=== PATIENT | male | born 1975 | race Caucasian/White ===

== ENCOUNTER 2018-02-12 17:10 | Observation (INO) ==
--- NOTE | 2018-02-12 18:34 | Emergency Department Note ---
Addendum entered and electronically signed by Graeme Saba 02/12/18 19:19: The clinical impression is incorrect. Labs returned with CK being >2400. Will admit as rhabdomyolysis and give IVF and obtain UA now. Original Note: Disposition Clinical Impression: Post viral syndrome Disposition: Home, Self-Care Condition: Good Instructions: Viral Syndrome (ED) Reasons to Return/Additional Instructions: Followup with your primary care provider next week if symptoms do not improve. Can return to the ED if symptoms worsen or new symptoms develop. Referrals: Beatrice Ni BLACK LEATHER TRIMMER [Primary Care Provider] - General Adult HPI - General Chief complaint: ED Weakness Stated complaint: Muscle weakness,flu like symptoms Time Seen by Provider: 02/12/18 17:32 Source: patient Mode of arrival: ambulatory Limitations: no limitations Nursing Notes Reviewed: Yes Vital Signs Reviewed: Yes - History of Present Illness HPI Narrative: 42 year old man with hx of HTN and hypogonadism who takes IM testosterone presents to ED with muscle weakness/soreness. He had congestion, pharyngitis, myalgias 5 days ago which progressed with subjective fever and chills 3 days ago. 2 days ago he noticed bilateral hip/thigh muscles felt very sore/tight he describes as similar to lactic acid buildup when lifting weights that progressed distally and then into bilateral traps and UE. Today he noticed UE paresthesia and decreased fine motor skills with hands. Was having trouble closing a plastic baggy and trouble writing today due to weakness and dexterity of fingers. He denied tremors, numbness/paresthesia elsewhere, unilateral symptoms, confusion, trouble speaking, blurry vision/diplopia, dizziness/lightheadedness, otc vitamin use/workout supplements. Has not lifted weights for 10 days. Pt Subjective Complaint: muscle weakness Onset (ago): day(s) Location: left, right, upper extremity, lower extremity Radiation: non-radiation Pain Scale: 2 Consistency: Worsening Improves with: nothing Worsens with: nothing Associated symptoms: Reports: denies other symptoms Treatments Prior to Arrival: none - Related Data Allergies Allergy/AdvReac Type Severity Reaction Status Date / Time shrimp Allergy Swelling Verified 02/12/18 19:01 of Lip/Tongue/Throat Sulfa (Sulfonamide AdvReac See Verified 02/12/18 19:01 Antibiotics) Comments All systems ED: reviewed and negative except as stated. Constitutional: Reports: weakness. Denies: fever, chills Eyes: Denies: vision change ENT ED: Denies: throat pain, congestion Cardiovascular: Denies: chest pain Respiratory: Denies: cough, dyspnea Gastrointestinal: Denies: abdominal pain, nausea, vomiting Musculoskeletal: Reports: back pain, neck pain Neurological: Reports: weakness, numbness, paresthesias Past Medical History - Past Medical History Medical history: Reports: hypertension Psychiatric history: Reports: no psych history - Social History Smoking Status: Never smoker Smokeless Tobacco Status: No Alcohol use: Reports: none Drug use: Reports: none Physical Exam - General Limitations: no limitations General appearance: alert, in no apparent distress - Head Head exam: atraumatic, normocephalic, normal inspection - Eye Eye exam: Present: normal appearance, PERRL, EOMI - ENT ENT exam: mucous membranes moist - Neck Neck exam: Present: normal inspection, full ROM, trachea midline - Chest Chest inspection: Present: normal inspection, symmetric chest wall rise - Respiratory Respiratory exam: Present: normal lung sounds bilaterally - Cardiovascular Cardiovascular exam: Present: regular rate, normal rhythm, normal heart sounds, +S1, +S2 - Extremities Exam Extremities exam: Present: normal inspection, normal capillary refill. Absent: full ROM, tenderness, pedal edema, calf tenderness - Neurological Exam Neurological exam: Present: alert - Expanded Neurological Exam Speech: Present: fluid speech Cranial nerves: EOM function (II, III, IV, ): Normal, facial sensation (V): Normal, facial palsy (VII): Normal, spinal accessory function (XI): Normal, tongue deviation (XII): Normal Cerebellar function: finger to nose: Normal Motor strength - LUE: 5/5 Motor strength - RUE: 5/5 Motor strength - LLE: 5/5 Motor strength - RLE: 5/5 Sensory exam upper extremity: light touch: Normal, temperature: Normal Sensory exam lower extremity: light touch: Normal, temperature: Normal DTR: brachioradialis (L): 2+, brachioradialis (R): 2+, patellar (L): 2+, patellar (R): 2+ - Psychiatric Psychiatric exam: Present: normal affect - Skin Skin exam: Present: warm, dry, intact, normal color. Absent: rash, cyanosis, diaphoresis, erythema Course Course Narrative: muscle weakness/tightness post flu like symptoms. Likely viral syndrome but will check electrolytes and ck now. Vital Signs Temperature 98.6 F 02/12/18 17:19 Pulse Rate 88 02/12/18 17:19 Respiratory Rate 16 02/12/18 17:19 Blood Pressure 151/86 02/12/18 17:19 O2 Sat by Pulse Oximetry 96 02/12/18 17:19 Temperature 98.6 F 02/12/18 17:19 Pulse Rate 77 02/12/18 18:59 Respiratory Rate 16 02/12/18 17:19 Blood Pressure 140/81 02/12/18 18:59 O2 Sat by Pulse Oximetry 98 02/12/18 18:59 Oxygen Delivery Oxygen Delivery Room Air Medical Decision Making - Lab Data Result diagrams: 02/12/18 18:25 Lab Results 02/12/18 Range/Units 18:25 WBC 6.5 (4.3-11.1) K/mcL RBC 5.33 (4.19-5.50) M/mcL Hgb 16.9 (12.9-16.9) g/dL Hct 47.9 (37.5-50.1) % MCV 89.9 (83.0-100.0) fL MCH 31.7 (28.0-33.3) pg MCHC 35.3 (31.6-35.5) g/dL RDW 13.5 (11.5-14.5) % Plt Count 144 (140-400) K/mcL MPV 10.3 (9.4-12.4) fL
[2018-02-12 18:39] LABS: Hematocrit 47.9 % (37.5-50.1); Hemoglobin 16.9 g/dL (12.9-16.9); Mean Corpuscular HGB Conc 35.3 g/dL (31.6-35.5); Mean Corpuscular Hemoglobin 31.7 pg (28.0-33.3); Mean Corpuscular Volume 89.9 fL (83.0-100.0); Mean Platelet Volume 10.3 fL (9.4-12.4); Platelet Count 144 K/mcL (140-400); Red Blood Count 5.33 M/mcL (4.19-5.50); Red Cell Distribution Width 13.5 % (11.5-14.5)
--- NOTE | 2018-02-12 18:51 | Emergency Department Note ---
Disposition Clinical Impression: Post viral syndrome Disposition: Home, Self-Care Condition: Good Instructions: Viral Syndrome (ED) Reasons to Return/Additional Instructions: Followup with your primary care provider next week if symptoms do not improve. Can return to the ED if symptoms worsen or new symptoms develop. Referrals: Beatrice Ni CNP [Primary Care Provider] - General Adult HPI - General Chief complaint: ED Weakness Stated complaint: Muscle weakness,flu like symptoms Time Seen by Provider: 02/12/18 17:32 Source: patient Mode of arrival: ambulatory Limitations: no limitations - History of Present Illness Location: left, right, upper extremity, lower extremity Pain Scale: 2 Improves with: nothing Worsens with: nothing Associated symptoms: Reports: denies other symptoms Treatments Prior to Arrival: none - Related Data Allergies Allergy/AdvReac Type Severity Reaction Status Date / Time shrimp Allergy Swelling Verified 02/12/18 19:01 of Lip/Tongue/Throat Sulfa (Sulfonamide AdvReac See Verified 02/12/18 19:01 Antibiotics) Comments Constitutional: Reports: weakness. Denies: fever, chills Eyes: Denies: vision change ENT ED: Denies: throat pain, congestion Cardiovascular: Denies: chest pain Respiratory: Denies: cough, dyspnea Gastrointestinal: Denies: abdominal pain, nausea, vomiting Musculoskeletal: Reports: back pain, neck pain Neurological: Reports: weakness, numbness, paresthesias Past Medical History - Past Medical History Medical history: Reports: hypertension Psychiatric history: Reports: no psych history - Social History Smoking Status: Never smoker Smokeless Tobacco Status: No Alcohol use: Reports: none Drug use: Reports: none Physical Exam - General Limitations: no limitations General appearance: alert, in no apparent distress Course Vital Signs Temperature 98.6 F 02/12/18 17:19 Pulse Rate 88 02/12/18 17:19 Respiratory Rate 16 02/12/18 17:19 Blood Pressure 151/86 02/12/18 17:19 O2 Sat by Pulse Oximetry 96 02/12/18 17:19 Temperature 98.6 F 02/12/18 17:19 Pulse Rate 77 02/12/18 18:59 Respiratory Rate 16 02/12/18 17:19 Blood Pressure 140/81 02/12/18 18:59 O2 Sat by Pulse Oximetry 98 02/12/18 18:59 Oxygen Delivery Oxygen Delivery Room Air Medical Decision Making - Lab Data Result diagrams: 02/12/18 18:25 Lab Results 02/12/18 Range/Units 18:25 WBC 6.5 (4.3-11.1) K/mcL RBC 5.33 (4.19-5.50) M/mcL Hgb 16.9 (12.9-16.9) g/dL Hct 47.9 (37.5-50.1) % MCV 89.9 (83.0-100.0) fL MCH 31.7 (28.0-33.3) pg MCHC 35.3 (31.6-35.5) g/dL RDW 13.5 (11.5-14.5) % Plt Count 144 (140-400) K/mcL MPV 10.3 (9.4-12.4) fL Attestation Statement - Attestation Attestation: I examined this patient and my medical decision-making was reviewed with the PRICK STITCHER/PA/Advanced Practice Nurse/Resident Physician. I agree with the documented findings, disposition and treatment plan as described except to the extent set forth below. I did see the patient spoke with them examine home and he has had some rhinorrhea and coughing for the last 4 days which is improving, generalized myalgias and feeling of muscle weakness, exposed to his girlfriend who has upper respiratory symptoms. The patient did have what he called a fever on Thursday, 2 days ago but did not check his temperature but felt very warm. He denies any pain in the head, neck, chest, abdomen or back. No vomiting or diarrhea. No blood in the urine or stool. Social history: No smoking, alcohol, drugs. The patient likely has a viral syndrome and we did write for labs based on the significant number symptoms that the patient is having however if these do come back negative patient was sent home for symptom medical therapy with [id number] medications, oral fluids and to follow-up with primary care on Thursday
[2018-02-12 19:13] LABS: Alanine Aminotransferase 50 Units/L (7-52); Albumin 3.9 g/dL (3.5-5.7); Albumin/Globulin Ratio 1.2 (1.1-2.2); Alkaline Phosphatase 30 Units/L (34-104); Aspartate Amino Transferase 85 Units/L (13-39); BUN/Creatinine Ratio 13 (6-26); Bilirubin,Direct 0.2 mg/dL (0.0-0.2); Bilirubin,Indirect 0.3 mg/dL (0.0-1.2); Bilirubin,Total 0.5 mg/dL (0.3-1.0); Blood Urea Nitrogen 13 mg/dL (6-20); Calcium 8.3 mg/dL (8.6-10.3); Carbon Dioxide 26 mEq/L (23-29); Chloride 101 mEq/L (98-107); Creatine Kinase 2415 Units/L (30-223); Globulin 3.3 g/dL (2.4-3.5); Glucose 77 mg/dL (70-105); Osmolality,Calculated 281 (280-300); Potassium 3.6 mEq/L (3.5-5.1); Sodium 136 mEq/L (136-145); Total Protein 7.2 g/dL (6.4-8.9); eGFR For Non-African Americans > 60 (> 60)
[2018-02-12] MEDS ORDERED: 0.9 % Sodium Chloride 1,000 ML IVC ONE ×2 (19:18→19:29)
--- NOTE | 2018-02-12 19:27 | Emergency Department Note ---
Disposition Clinical Impression: Post viral syndrome, Myopathy Rhabdomyolysis Qualifiers: Rhabdomyolysis type: non-traumatic Qualified Code(s): M62.82 - Rhabdomyolysis Disposition: Admitted As Inpatient Condition: Good General Adult HPI - General Chief complaint: ED Weakness Stated complaint: Muscle weakness,flu like symptoms Time Seen by Provider: 02/12/18 17:32 Source: patient Mode of arrival: ambulatory Limitations: no limitations Nursing Notes Reviewed: Yes Vital Signs Reviewed: Yes - History of Present Illness Location: left, right, upper extremity, lower extremity Pain Scale: 2 Improves with: nothing Worsens with: nothing Associated symptoms: Reports: denies other symptoms Treatments Prior to Arrival: none - Related Data Allergies Allergy/AdvReac Type Severity Reaction Status Date / Time shrimp Allergy Swelling Verified 02/12/18 19:01 of Lip/Tongue/Throat Sulfa (Sulfonamide AdvReac See Verified 02/12/18 19:01 Antibiotics) Comments Constitutional: Reports: weakness. Denies: fever, chills Eyes: Denies: vision change ENT ED: Denies: throat pain, congestion Cardiovascular: Denies: chest pain Respiratory: Denies: cough, dyspnea Gastrointestinal: Denies: abdominal pain, nausea, vomiting Musculoskeletal: Reports: back pain, neck pain Neurological: Reports: weakness, numbness, paresthesias Past Medical History - Past Medical History Medical history: Reports: hypertension Psychiatric history: Reports: no psych history - Social History Smoking Status: Never smoker Smokeless Tobacco Status: No Alcohol use: Reports: none Drug use: Reports: none Physical Exam - General Limitations: no limitations General appearance: alert, in no apparent distress Course Vital Signs Temperature 98.6 F 02/12/18 17:19 Pulse Rate 88 02/12/18 17:19 Respiratory Rate 16 02/12/18 17:19 Blood Pressure 151/86 02/12/18 17:19 O2 Sat by Pulse Oximetry 96 02/12/18 17:19 Temperature 98.6 F 02/12/18 17:19 Pulse Rate 77 02/12/18 18:59 Respiratory Rate 16 02/12/18 17:19 Blood Pressure 140/81 02/12/18 18:59 O2 Sat by Pulse Oximetry 98 02/12/18 18:59 Oxygen Delivery Oxygen Delivery Room Air Medical Decision Making - Lab Data Result diagrams: 02/12/18 18:25 02/12/18 18:25 Lab Results 02/12/18 02/12/18 Range/Units 18:25 18:25 WBC 6.5 (4.3-11.1) K/mcL RBC 5.33 (4.19-5.50) M/mcL Hgb 16.9 (12.9-16.9) g/dL Hct 47.9 (37.5-50.1) % MCV 89.9 (83.0-100.0) fL MCH 31.7 (28.0-33.3) pg MCHC 35.3 (31.6-35.5) g/dL RDW 13.5 (11.5-14.5) % Plt Count 144 (140-400) K/mcL MPV 10.3 (9.4-12.4) fL Sodium 136 (136-145) mEq/L Potassium 3.6 (3.5-5.1) mEq/L Chloride 101 (98-107) mEq/L Carbon Dioxide 26 (23-29) mEq/L BUN 13 (6-20) mg/dL Creatinine 1.04 (0.70-1.30) mg/dL Est GFR ( Amer) > 60 (> 60) Est GFR (Non-Af Amer) > 60 (> 60) BUN/Creatinine Ratio 13 (6-26) Glucose 77 (70-105) mg/dL Calculated Osmolality 281 (280-300) Calcium 8.3 L (8.6-10.3) mg/dL Total Bilirubin 0.5 (0.3-1.0) mg/dL Direct Bilirubin 0.2 (0.0-0.2) mg/dL Indirect Bilirubin 0.3 (0.0-1.2) mg/dL AST 85 H (13-39) Units/L ALT 50 (7-52) Units/L Alkaline Phosphatase 30 L (34-104) Units/L Creatine Kinase 2415 H (30-223) Units/L Serum Total Protein 7.2 (6.4-8.9) g/dL Albumin 3.9 (3.5-5.7) g/dL Globulin 3.3 (2.4-3.5) g/dL Albumin/Globulin Ratio 1.2 (1.1-2.2) Attestation Statement - Attestation Attestation: Patient taken over at sign out from Dr. Suzanne. The patient had initial labs drawn secondary to viral syndrome. Patient with complaints of his upper extremities feeling as if he has been working out. Patient with pain in the biceps as well as across the upper back. 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 The patient's CK came back elevated at 2500. Patient will be given fluids and undergo admission for further evaluation. At time of my evaluation he has not had difficulty with ambulation and does not have any abnormal reflexes of the arms or legs. No respiratory complaints. I did discuss with the hospitalist. Patient will be brought in for fluid management as well as continued observation.
[2018-02-12] MEDS ORDERED: Naloxone 0.4 MG/ML INJ IVP PRN (21:07)
[2018-02-12] MEDS ORDERED: Ketorolac 15 MG/ML VIAL IVP PRN (21:07)
--- NOTE | 2018-02-12 21:29 | Internal Med History&Physical ---
<Irwin Dodson - Last Filed: 02/13/18 00:33> Date of Encounter: 02/12/18 Time of Encounter: 21:00 Internal Medicine - H&P: HPI Chief complaint: Muscle pain Admitted From: Emergency Dept Plans for Post Hospital Care: Home History of present illness: Mr. Stephen is a 42 year old male with history of hypertension, low testosterone, migraine headaches who presents to the ED with complaints of upper respiratory infection like symptoms and myalgias for 5 days duration. He says that he initially started having muscle weakness and soreness approximately 5 days ago, and developed fevers and chills approximately 3 days ago. Feels that this initially began with a sore throat and cough on Thursday, and has been worsening each day until by Thursday he was having significant pain in his muscles which she considered severe and he considered pain down to bone. The pain is all over his body, however it initially started in his traps and then moved elsewhere. He has tried taking Clari[place] cold and sinus, as well as ibuprofen which have both been effective for the pain. His most concerning symptom was last night when he was trying to seal a plastic zip lock bag and he had difficulty doing so. In addition to this, the patient says that today he was trying to use a pen to write and he noticed that his dexterity was decreased and that he had a hard time gripping the pen. He says this never happened before. He has no history of any neurological or muscular disease. 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 He eats healthy, works out 2-3 times a week although has not worked out and about a week and a half or 2 weeks. He does not smoke, does not drink alcohol and uses no drugs. He lives with his girlfriend. Family history is significant only for a mother with hypertension and a father with pulmonary fibrosis. In the emergency department, the patient received labs which were grossly normal apart from elevated AST and a CK of 2415. The patient does not appear to have any evidence of acute kidney injury in the presence of elevated CK. Past Med Surg Social Fam HX - Past Medical History Medical history: hypertension Psychiatric history: no psych history - Past Surgical History Additional surgical history: ruptured disc - Social History Smoking Status: Never smoker Smokeless Tobacco Status: No Alcohol use: none Drug use: none - Family History Mother Living Status: Still Living Age at : 67 Hx Family Cardiac Disorders: Yes (HTN) Hx Family Cancer: (remission of cancer) Father Age: 70 Hx Family Respiratory Disorders: Yes (hardening of lungs) Internal Medicine - H&P: Meds Losartan/Hydrochlorothiazide [Losartan-Hctz 50-12.5 mg Tab] 1 tab PO DAILY 02/12/18 [History] SUMAtriptan Succinate [Imitrex] 100 mg PO DAILY PRN 02/12/18 [History] Testosterone Cypionate 200 mg IM Q10D 02/12/18 [History] Allergy/AdvReac Type Severity Reaction Status Date / Time shrimp Allergy Swelling Verified 02/12/18 19:01 of Lip/Tongue/Throat Sulfa (Sulfonamide AdvReac See Verified 02/12/18 19:01 Antibiotics) Comments All Systems PM: A 10-system review of systems was performed and is negative for pertinent findings except as documented above in the HPI. Review of systems: Constitutional: Admits to subjective fever and chills. Denies weight loss, gen eralized fatigue Head/Neck: Denies HENLEY, neck stiffness EENT: Admits to congestion and sore throat. Denies vision changes/blurriness, rhinorrhea. CVS: Denies chest pain, palpitations, TAYLOR, orthopnea, edema, PND Pulm: Admits to cough. Denies SOB, sputum, hemoptysis, wheezing GI: Denies abdominal pain, nausea, vomiting, diarrhea, constipation, melena, hematemasis : Denies dysuria, increased frequency, urgency, hematuria Heme: Denies ease of bleeding or bruising MSK: Admits to severe muscular pain throughout his body with muscle weakness, worse on the left. Skin: Denies rashes, ulcers, color changes Neuro: Admits to mild headache, denies paresthesias but admits to significant muscle weakness and pain throughout his body. - Constitutional Vitals: Temp Pulse Resp BP Pulse Ox 98.6 F 77 16 140/81 98 02/12/18 17:19 02/12/18 18:59 02/12/18 17:19 02/12/18 18:59 02/12/18 18:59 Exam: Gen: Vitals noted. No acute distress. Eyes: anicteric sclerae, moist conjunctivae; no lid-lag; Pupils equal and reactive to light HENT: Atraumatic; oropharynx clear with moist mucous membranes and no mucosal ulcerations; normal hard and soft palate Neck: Trachea midline; supple, no thyromegaly or lymphadenopathy Cardiac: RRR, no murmur, +S1/S2 Pulmonary: CTA bilaterally, no wheezes, rales or rhonchi, equal chest expansion Abdomen: soft, nontender, no guarding. No masses or hepatosplenomegaly MSK: ROM intact, no joint swelling noted. Soreness is noted throughout muscles even with light palpation. Extremities: no BLE edema, nontender calf, no cyanosis or clubbing Skin: Normal temperature, turgor and texture; no rash, ulcers or subcutaneous nodules Neuro: moves all extremities, cranial nerves II through XII grossly intact. There is no notable muscle weakness on the left side throughout, however most notable in the left lower extremity. Muscle strength 4 out of 5 in the left lower extremity, although patient says this could be secondary to pain.. Pincer strength also decreased. Patient had decreased ability for rapid alternating movement as well. Sensory function is grossly intact. Reflexes normal throughout. Psych: Appropriate mood and behavior. A&Ox3 Internal Med - H&P Results - Labs CBC & Chem 7: 02/12/18 18:25 02/12/18 18:25 Labs: Short CBC 02/12/18 Range/Units 18:25 WBC 6.5 (4.3-11.1) K/mcL Hgb 16.9 (12.9-16.9) g/dL Hct 47.9 (37.5-50.1) % Plt Count 144 (140-400) K/mcL BMP 02/12/18 18:25 Sodium 136 Potassium 3.6 Chloride 101 Carbon Dioxide 26 BUN 13 Creatinine 1.04 Glucose 77 Calcium 8.3 L Liver Function 02/12/18 Range/Units 18:25 Total Bilirubin 0.5 (0.3-1.0) mg/dL Direct Bilirubin 0.2 (0.0-0.2) mg/dL AST 85 H (13-39) Units/L ALT 50 (7-52) Units/L Alkaline Phosphatase 30 L (34-104) Units/L Albumin 3.9 (3.5-5.7) g/dL - Assessment and plan (1) Muscle weakness Current Visit: Yes Status: Acute Assessment and plan: Muscle weakness, left worse than right Weakness is significant specifically on the left, muscle strength 4 out of 5 Patient says this is partially due to muscle pain, however it is notable There does not appear to be any accompanying sensory deficits at this time Although I do not suspect that there is a BIOMEDICAL SERVICE ENGINEER involvement in this, head CT is indicated We will consider neurology follow-up (2) Rhabdomyolysis Current Visit: Yes Status: Acute Assessment and plan: Rhabdomyolysis, CK 2415 Etiology is suspected viral myositis Renal function appears to be stable at this time We will continue to monitor, give IV maintenance fluids Recheck CK and BMP in the morning Qualifiers: Rhabdomyolysis type: non-traumatic Qualified Code(s): M62.82 - Rhabdomyolysis (3) Hypertension Current Visit: Yes Status: Acute Assessment and plan: Htn, Hold Losartan-HCTZ due to potential for nephrotoxicity effects in patient with rhabdomyolysis I will give one-time dose of amlodipine tonight Consider restarting home meds tomorrow Qualifiers: Hypertension type: essential hypertension Qualified Code(s): I10 - Essential (primary) hypertension (4) DVT prophylaxis Current Visit: Yes Status: Acute Assessment and plan: Subcutaneous heparin (5) Viral myositis Current Visit: Yes Status: Suspected Assessment and plan: Suspected viral myositis Patient recently had upper respiratory infection and is now having symptoms of myositis Presents with muscle soreness, weakness, CK elevated 2415 Exact etiology is unknown at this time, however suspect viral etiology Still, I will check ESR, CRP, NABILA, flu, Monospot Recheck creatine kinase in the morning, as well as BMP Consider neurology consult if symptoms worsen due to concern for polymyositis - Time Spent With Patient Total time spent is greater than 50% in coordination of care (as documented) at patient's floor/unit and/or counseling patient: <Clinton Antunez - Last Filed: 02/13/18 04:18> Date of Encounter: 02/13/18 Time of Encounter: 01:50 - Constitutional Constitutional: no chills, no fever(s) - EENT Eyes: no blurry vision, no change in vision, no diplopia Ears: no ear pain, no tinnitus Nose, mouth and throat: no sore throat - Cardiovascular Cardiovascular ROS IM: no chest pain, no dyspnea - Respiratory Respiratory: no cough, no chest congestion, no excessive phlegm production - Gastrointestinal Gastrointestinal: no abdominal pain, no diarrhea, no hematemesis, no hematochezia, no melena, no vomiting - Genitourinary Genitourinary ROS male: no dysuria, no flank pain, no hematuria - Musculoskeletal Musculoskeletal ROS IM: muscle weakness, myalgias, no arthralgias, no back pain - Integumentary Integumentary IM: no rash, no jaundice - Neurological Neurological ROS: weakness (generalized), no dizziness, no focal weakness, no frequent falls, no headache(s) - Psychiatric Psychiatric: no anxiety, no depression - Endocrine Endocrine IM: no cold intolerance, no heat intolerance, no polydipsia, no polyuria - Hematologic/Lymphatic Hematologic/Lymphatic: no easy bruising - Allergic/Immunologic Allergic/Immunologic: no GI upset with certain foods - Constitutional Vitals: Temp Pulse Resp BP Pulse Ox 98.6 F 82 16 145/84 98 02/12/18 23:43 02/12/18 23:43 02/12/18 23:43 02/13/18 01:41 02/12/18 23:43 General appearance: Present: cooperative, A&O X 3, pleasant, no acute distress - Eye Eye exam: Present: EOMI, PERRL. Absent: scleral icterus Pupils: Present: normal accommodation - ENT ENT exam: Present: mucous membranes dry, normal exam, normal oropharynx - Neck Neck exam general surgery: Present: full ROM, supple. Absent: tenderness, nuchal rigidity, thyromegaly - Respiratory Respiratory exam: Present: CTAB. Absent: chest wall tenderness, rales, rhonchi, wheezes - Cardiovascular Cardiovascular exam: Present: RRR, +S1, +S2. Absent: diastolic murmur, systolic murmur - GI/Abdominal GI/Abdominal exam: Present: normal bowel sounds, soft. Absent: guarding, hepatomegaly, mass, splenomegaly, tenderness - Extremities Exam Extremities exam: Present: full ROM, normal capillary refill, tenderness (mild diffuse muscle aches), warm, radial pulses palpable and symmetrical. Absent: calf tenderness, joint swelling, pedal edema - Back Exam Back exam: Absent: CVA tenderness (L), CVA tenderness (R) - Neurological Exam Neurological exam: Present: alert, CN II-XII intact, oriented X3, no focal deficits, strengths equal and symetr throughout - Psychiatric Psychiatric exam: Present: normal affect, normal mood - Skin Skin exam: Present: dry, intact, warm Internal Med - H&P Results - Labs CBC & Chem 7: 02/12/18 18:25 02/12/18 18:25 Labs: Short CBC 02/12/18 Range/Units 18:25 WBC 6.5 (4.3-11.1) K/mcL Hgb 16.9 (12.9-16.9) g/dL Hct 47.9 (37.5-50.1) % Plt Count 144 (140-400) K/mcL BMP 02/12/18 18:25 Sodium 136 Potassium 3.6 Chloride 101 Carbon Dioxide 26 BUN 13 Creatinine 1.04 Glucose 77 Calcium 8.3 L Liver Function 02/12/18 Range/Units 18:25 Total Bilirubin 0.5 (0.3-1.0) mg/dL Direct Bilirubin 0.2 (0.0-0.2) mg/dL AST 85 H (13-39) Units/L ALT 50 (7-52) Units/L Alkaline Phosphatase 30 L (34-104) Units/L Albumin 3.9 (3.5-5.7) g/dL Urine 02/13/18 Range/Units 01:06 Urine Color Yellow (Yellow) Urine Clarity Clear (Clear) Urine pH 6.0 (5.0-8.0) pH Units Ur Specific [place] 1.023 (1.010-1.025) Urine Protein Negative (Neg-Trace) mg/dL Urine Glucose (UA) Normal (Normal) mg/dL - Impressions ITS Impressions Head CT 02/12/18 22:15 IMPRESSION: No acute intracranial abnormality. D/ / Bella Esqueda Cha, MD / Bella Esqueda Cha, MD Interpreting Provider: Bella Esqueda Cha, MD - Assessment and plan (1) Rhabdomyolysis Current Visit: Yes Status: Acute Qualifiers: Rhabdomyolysis type: non-traumatic Qualified Code(s): M62.82 - Rhabdomyolysis (2) Hypertension Current Visit: Yes Status: Acute Qualifiers: Hypertension type: essential hypertension Qualified Code(s): I10 - Essential (primary) hypertension (3) Muscle weakness Current Visit: Yes Status: Acute (4) DVT prophylaxis Current Visit: Yes Status: Acute (5) Viral myositis Current Visit: Yes Status: Suspected - Time Spent With Patient Total time spent is greater than 50% in coordination of care (as documented) at patient's floor/unit and/or counseling patient: - Attending Attestation I discussed the patient ELIM IRA, past medical history, review of systems, lab data, and exam findings with Dr. Dodson. I then saw and examined patient indep endently as well. Patient gives a good history of having a viral process/infection over last week. He seems to have recovered from that but has developed significant weakness, fatigue, and generalized muscle aches. He denies any direct muscle injury or trauma. He denies any excessive physical ac tivity or heavy exertion/working out. He denies any ill contacts with people who have mononucleosis. Family history is negative for any polymyositis and dermatomyositis. Furthermore, there is no family history of any neuromuscular diseases. I agree with the conservative management at this time including IV fluid hydration and monitoring his labs. If his CPK levels do not improve and/or worsen, he may need further workup including neurology consult and possible muscle biopsy. Additionally, he may need rheumatologic workup as well. However, for now, I agree with trending his CPK levels and hydrating him as ordered by Dr. Dodson. Other than my comments above and noted physical exam findings, I agree with Dr. Dodson's assessment and plan.
[2018-02-12] MEDS ORDERED: SUMAtriptan succinate 50 MG TABLET PO PRN (23:42)
[2018-02-12] MEDS: Ringers Solution, Lactated 1,000 ML IVC SCH (23:59)
[2018-02-13] MEDS ORDERED: amLODIPine 5 MG TABLET PO ONE (00:01)
[2018-02-13 01:23] LABS: Bilirubin,Urine Negative (Negative); Blood,Urine Negative (Negative); Clarity,Urine Clear (Clear); Color,Urine Yellow (Yellow); Glucose,Urine (UA) Normal (Normal); Ketones,Urine 15 mg/dL (Negative); Leukocyte Esterase,Urine Negative (Negative); Nitrite,Urine Negative (Negative); Protein,Urine Negative (Neg-Trace); Specific Gravity,Urine 1.023 (1.010-1.025); Urobilinogen,Urine Normal (Normal)
[2018-02-13 04:26] LABS: Hematocrit 46.3 % (37.5-50.1); Hemoglobin 16.1 g/dL (12.9-16.9); Mean Corpuscular HGB Conc 34.8 g/dL (31.6-35.5); Mean Corpuscular Hemoglobin 30.9 pg (28.0-33.3); Mean Corpuscular Volume 88.9 fL (83.0-100.0); Mean Platelet Volume 10.3 fL (9.4-12.4); Platelet Count 139 K/mcL (140-400); Red Blood Count 5.21 M/mcL (4.19-5.50); Red Cell Distribution Width 13.4 % (11.5-14.5)
[2018-02-13 04:30] LABS: INR 1.2; Prothrombin Time 13.9 Seconds (9.4-12.1)
[2018-02-13 05:00] LABS: Lymphocytes # 2.7 K/mcL (0.6-4.6); Monocytes # 0.6 K/mcL (0.0-1.3); Platelet Estimate Slight Decrease (Normal); Reactive Lymphocytes Present (Not Present)
[2018-02-13] MEDS: *HR* Heparin 5,000 UNIT/ML VIAL SQ SCH ×3 (05:24→20:49)
[2018-02-13 05:27] LABS: BUN/Creatinine Ratio 12 (6-26); Blood Urea Nitrogen 12 mg/dL (6-20); C-Reactive Protein 16 mg/L (Less than 10); Carbon Dioxide 25 mEq/L (23-29); Chloride 105 mEq/L (98-107); Creatine Kinase 2922 Units/L (30-223); Glucose 66 mg/dL (70-105); Magnesium 1.9 mg/dL (1.6-2.6); Osmolality,Calculated 282 (280-300); Phosphorous 2.7 mg/dL (2.7-4.5); Potassium 3.6 mEq/L (3.5-5.1); Sodium 137 mEq/L (136-145); Thyroid Stimulating Hormone 5.519 mcIU/mL (0.340-5.600); eGFR For Non-African Americans > 60 (> 60)
[2018-02-13] MEDS: Ringers Solution, Lactated 1,000 ML IVC SCH (08:00)
--- NOTE | 2018-02-13 11:29 | Event Note ---
Date of Encounter: 02/13/18 Time of Encounter: 10:42 Mr. Stephen is a 42-year-old male with a history of HTN, low testosterone, migraine headaches. He presents to the ED with complaints of weakness, fatigue, myalgias 5 days duration. He notes that this Thursday began to have muscle weakness and soreness as well as fevers and chills. This has been getting progressively worse throughout the week; He reports that he is experiencing difficulties with dexterity and pain with movement of all 4 extremities which prompted him to seek care in the ED. He denies ascending presentation. He is also reporting sore throat and cough early in the week as well but denies this at this time. He has tried taking OTC remedies including Cl[place] cold and sinus as well as ibuprofen but this has not improved his pain. While in the ED he was noted to have an elevated AST as well as an elevated CK of 2415, repeat CK increased to 2922. No evidence of NICK. He is being admitted for further workup and monitoring with concerns for rhabdomyolysis and viral myositis. Mag, phos and TSH within normal limits, CBC grossly normal, ESR 5 CRP 16 EXAM: PHYSICAL EXAMINATION: GENERAL: The patient is a well-developed, well-nourished male in no apparent distress. He is alert and oriented x3. HEENT: Head is normocephalic and atraumatic. Extraocular muscles are intact. Pupils are equal, round, and reactive to light and accommodation. Nares appeared normal. Mouth is well hydrated and without lesions. Mucous membranes are moist. Posterior pharynx clear of any exudate or lesions. NECK: Supple. No carotid bruits. No lymphadenopathy or thyromegaly. LUNGS: Clear to auscultation. HEART: Regular rate and rhythm without murmur. ABDOMEN: Soft, nontender, and nondistended. Positive bowel sounds. No hepatosplenomegaly was noted. EXTREMITIES: Without any cyanosis, clubbing, rash, lesions or edema. NEUROLOGIC: Cranial nerves II through XII are grossly intact. Without unilateral weakness, numbness or tingling, strength 5/5 bilaterally PSYCHIATRIC: Flat affect, but denies suicidal or homicidal ideations. SKIN: No ulceration or induration present. ASSESSMENT AND PLAN: 1 muscle weakness 2 rhabdomyolysis 3 HTN- 4 viral myositis 5 DVT prophylaxis- Monitor for results of ESR, CRP, NABILA, flu and Monospot Order B12, thiamine and folate Recheck CK this afternoon at 2 PM and again at 8 PM BMP this afternoon as well as in the morning to monitor for worsening renal function Consider neuro consult if symptoms persist or worsen holding losartan HCTZ due to potential for nephrotoxicity
[2018-02-13 15:08] LABS: Folate 16.7 ng/mL (3.0-16.0)
[2018-02-13] MEDS: 0.9 % Sodium Chloride 1,000 ML IVC SCH ×2 (16:09→22:50)
[2018-02-13] MEDS: Acetaminophen 325 MG TABLET PO PRN (23:07)
[2018-02-14] MEDS ORDERED: 0.9 % Sodium Chloride 1,000 ML IVC SCH (04:00)
[2018-02-14] MEDS: *HR* Heparin 5,000 UNIT/ML VIAL SQ SCH (05:45)
[2018-02-14 07:16] VITALS: BP 149/93
[2018-02-14 07:59] LABS: Hemoglobin 17.5 g/dL (12.9-16.9); Mean Corpuscular Hemoglobin 31.2 pg (28.0-33.3); Mean Corpuscular Volume 89.1 fL (83.0-100.0); Mean Platelet Volume 9.8 fL (9.4-12.4); Platelet Count 144 K/mcL (140-400); Red Blood Count 5.61 M/mcL (4.19-5.50); Red Cell Distribution Width 13.4 % (11.5-14.5)
[2018-02-14] MEDS: Acetaminophen 325 MG TABLET PO PRN (09:12)
[2018-02-14 10:50] LABS: BUN/Creatinine Ratio 10 (6-26); Blood Urea Nitrogen 9 mg/dL (6-20); Calcium 8.5 mg/dL (8.6-10.3); Carbon Dioxide 28 mEq/L (23-29); Chloride 107 mEq/L (98-107); Glucose 84 mg/dL (70-105); Osmolality,Calculated 284 (280-300); Potassium 4.1 mEq/L (3.5-5.1); Sodium 138 mEq/L (136-145); eGFR For Non-African Americans > 60 (> 60)
[2018-02-14 11:02] LABS: Creatine Kinase 2457 Units/L (30-223)
--- NOTE | 2018-02-14 11:15 | Discharge Summary ---
- NOTES TO OUTPATIENT PROVIDER Notes to Outpatient Provider: Rhabdomyolysis. Peak CPK of 3050. Down trending 2457 on day of d/c. Serum Cr stable and WNL throughout stay; 0.90 on day of d/c. Urine clear/yellow with adequate UOP. F/u repeat CK and BMP. Consider Viral myositis as cause Orders not resulted at time of discharge: Pending orders 02/13/18 01:06 UA w. reflex culture [Urinalysis Reflex Cult & Micro] [URIN] Stat 02/13/18 03:40 DEBBIE IgG QUYEN rflx IFA AM 0400 EBV Virus Capsid Ag IgM Ab Routine 02/13/18 14:11 Vitamin B1 (Thiamine) Whole Bl Routine Date of Encounter: 02/14/18 Time of Encounter: 11:11 - Discharge Diagnosis (1) Rhabdomyolysis Priority: Primary Status: Acute Qualifiers: Rhabdomyolysis type: non-traumatic Qualified Code(s): M62.82 - Rhabdomyolysis (2) Hypertension Priority: Secondary Status: Acute Qualifiers: Hypertension type: essential hypertension Qualified Code(s): I10 - Essential (primary) hypertension (3) Muscle weakness Priority: Secondary Status: Acute (4) Viral myositis Priority: Secondary Status: Suspected (5) DVT prophylaxis Priority: Secondary Status: Acute Hospital course: Mr. Stephen is a 42 year old male who presented with URI s/sx, and myalgias 5 days duration, as well as muscle weakness and soreness. This was not descending in nature, he had no focal neuro deficits and was without numbness and tingling. Does not appear to have neurologic cause. Noted to have rhabdomyolysis with elevated CK on arrival of 2415. CK peaked at 3050 and is downtrending on day of discharge at 2457. Consider diagnosis of rhabdomyolysis secondary to viral myositis. Throughout the stay he has received 5 L of fluid and is improving. Muscle weakness has subsided. Continues to have some mild myalgia but reports this too is improving. With resolution of symptoms and improvement in CK the patient is being discharged home. He has been instructed to follow with his PCP within 1 week of discharge. He is being sent home with a follow-up lab for CMP and CK. Additionally, he is instructed to return to the ED should he have a decrease in urinary output, dark malodorous urine, increase in muscle weakness and/or pain as well as respiratory distress. The patient verbalizes understanding and denies any further questions at this time. Discharge discussed with: patient, family, nurse - Time Spent with Patient Total time spent providing and/or coordinating discharge services: Less than 30 minutes - Discharge Medications Home Medications: Losartan/Hydrochlorothiazide [Losartan-Hctz 50-12.5 mg Tab] 1 tab PO DAILY 02/12/18 [History] SUMAtriptan Succinate [Imitrex] 100 mg PO DAILY PRN 02/12/18 [History] Testosterone Cypionate 200 mg IM Q10D 02/12/18 [History] Allergies/Adverse Reactions: Allergy/AdvReac Type Severity Reaction Status Date / Time shrimp Allergy Swelling Verified 02/12/18 19:01 of Lip/Tongue/Throat Sulfa (Sulfonamide AdvReac See Verified 02/12/18 19:01 Antibiotics) Comments Date of admission: 02/12/18 20:14 Primary care physician: Beatrice Ni CNP Discharging clinician: Max Kirk Anticipated date of discharge: 02/14/18 - Constitutional Vitals: Temp Pulse Resp BP Pulse Ox 98.0 F 70 18 149/93 93 02/14/18 07:15 02/14/18 07:15 02/14/18 07:15 02/14/18 07:15 02/14/18 07:15 General appearance: Present: cooperative, A&O X 3, pleasant, no acute distress Exam: . - Head Head exam: Present: atraumatic, normocephalic - Eye Eye exam: Present: PERRL, conjuntiva pink, sclera anicteric Pupils: Present: PERRL - Neck Neck exam general surgery: Present: supple, trachea midline. Absent: lymphadenopathy - Respiratory Respiratory exam: Present: CTAB. Absent: accessory muscle use, rales, rhonchi, wheezes - Cardiovascular Cardiovascular exam: Present: RRR, +S1, +S2. Absent: diastolic murmur, gallop, rubs, systolic murmur - GI/Abdominal GI/Abdominal exam: Present: normal bowel sounds, soft, no peritoneal signs. Absent: distended, tenderness - Extremities Exam Extremities exam: Present: warm, radial pulses palpable and symmetrical. Absent: calf tenderness, cyanotic, pedal edema - Neurological Exam Neurological exam: Present: CN II-XII intact, oriented X3, no focal deficits. Absent: pronater drift, facial droop, speech deficit - Skin Skin exam: Present: dry, intact - Patient Status Disposition: Home, Self-Care Condition: Good Functional capacity at discharge: independent ambulation Overall status at discharge: patient is progressing back to baseline - Discharge Instructions Forms: ED Satisfaction Letter - Diet and Activity Activity: increase activity as tolerated, resume usual activities as tolerated Diet: advance to your usual diet
[2018-02-16 08:06] LABS: ANA IgG by ELISA NONE DETECTED (None Detected)
== END 2018-02-14 11:50 | disposition home or self-care (01) ==
LOC: 3BNU 17:10 → EMEROOARM 17:10 → 3BNU 22:20
PROVIDERS: ADMIT Family Medicine; ATTEND Family Medicine

== ENCOUNTER 2018-10-23 13:27 | Observation (INO) ==
[2018-10-23] MEDS ORDERED: Ipratropium/Albuterol Neb 3 ML IH ONE (14:19)
[2018-10-23] MEDS ORDERED: Ibuprofen 600 MG TABLET PO STA (14:19)
--- NOTE | 2018-10-23 14:21 | Emergency Department Note ---
Disposition Clinical Impression: Rhabdomyolysis Qualifiers: Rhabdomyolysis type: non-traumatic Qualified Code(s): M62.82 - Rhabdomyolysis Disposition: Admitted As Inpatient Condition: Good Time of Disposition: 17:45 General Adult HPI - General Chief complaint: ED Dizziness Stated complaint: aches all over,fever Time Seen by Provider: 10/23/18 13:49 Source: patient Limitations: no limitations Nursing Notes Reviewed: Yes Vital Signs Reviewed: Yes - History of Present Illness HPI Narrative: Male patient with a history of hypertension and has previously had rh abdomyolysis presenting to [facility] complaining of a three-day history of generalized malaise. Reporting myalgias. Also started today with a headache. Reports his behind his eyes. States his eyes hurt if he presses on them. No change in vision. No blurry vision. No loss of vision. States he does occasionally have a cough that is nonproductive and not out of the ordinary. Denies any overt shortness of breath. Denies any chest pain. Denies any abdominal pain vomiting or diarrhea but does report occasional nausea. No sick contacts. States that he has been taking his blood pressure at home with a wrist cuff and has not been taking his blood pressure medication secondary to it being low. Occasionally it is been 90 systolic. Pain Scale: 3 - Related Data Home Medications Medication Instructions Recorded Confirmed SUMAtriptan Succinate [Imitrex] 100 mg PO AD PRN 02/12/18 10/23/18 Testosterone Cypionate 200 mg IM Q10D 02/12/18 10/23/18 Valsartan/Hydrochlorothiazide 0.5 tab PO DAILY 10/23/18 10/23/18 [Diovan Hct 80-12.5 mg Tablet] Allergies Allergy/AdvReac Type Severity Reaction Status Date / Time shrimp Allergy Swelling Verified 10/23/18 17:28 of Lip/Tongue/Throat Sulfa (Sulfonamide AdvReac See Verified 10/23/18 17:28 Antibiotics) Comments All systems ED: reviewed and negative except as stated. Review of Systems: As Per HPI Constitutional: Reports: fever (One episode last night of 101.) Cardiovascular: Denies: chest pain, palpitations, syncope Respiratory: Reports: cough (Occasional. Unchanged.). Denies: dyspnea, sputum production Gastrointestinal: Reports: nausea. Denies: abdominal pain, vomiting, diarrhea, hematemesis, melena, hematochezia Musculoskeletal: Reports: myalgia Neurological: Reports: headache, weakness Past Medical History - Past Medical History Attestation: Yes The following information was validated with the patient. Source: patient Medical history: Reports: hypertension Psychiatric history: Reports: no psych history - Social History Smoking Status: Never smoker Smokeless Tobacco Status: No Alcohol use: Reports: none Drug use: Reports: none Physical Exam - General Limitations: no limitations General appearance: alert, in no apparent distress - Head Head exam: atraumatic, normocephalic, normal inspection - Eye Eye exam: Present: normal appearance, PERRL, EOMI - ENT ENT exam: normal exam, normal oropharynx, mucous membranes moist - Neck Neck exam: Present: normal inspection, full ROM, trachea midline - Chest Chest inspection: Present: normal inspection, symmetric chest wall rise. Absent: tenderness - Respiratory Respiratory exam: Present: wheezes (Mild expiratory). Absent: respiratory distress, accessory muscle use - Cardiovascular Cardiovascular exam: Present: regular rate, normal rhythm, normal heart sounds - Abdominal Exam Abdominal exam: Present: soft, Non-Tender. Absent: tenderness, distention, guarding, rebound, rigidity - Extremities Exam Extremities exam: Present: normal inspection, full ROM, normal capillary refill, other (Atrophy of the left calf compared to the right.). Absent: tenderness, pedal edema, calf tenderness - Back Exam Back exam: Present: normal inspection, full ROM. Absent: tenderness - Neurological Exam Neurological exam: Present: alert, oriented X3, other (Clonus to bilateral lower extremities. Fast beating.) - Psychiatric Psychiatric exam: Present: normal affect, normal mood - Skin Skin exam: Present: warm, dry, intact, normal color. Absent: rash, cyanosis, diaphoresis Course Course Narrative: Patient appears well resting in bed. Patient complains of being extremely tired. Also body aches. Lung sounds are clear with a mild expiratory wheeze. We will provide patient with a DuoNeb. We will provide him with Toradol and IV hydration. Does have a history of rhabdo. We will check labs. We will also get an EKG. Again he does not appear toxic in nature. Smiling conversantly. Abdomen is soft nontender. Muscle compartments are not tight. Normotensive while here. - Reevaluation(s) Reevaluation #1: While this is not 5 times the upper limit I am concerned that this is possibly still on the rise. I discussed this with the patient. Chest x-ray is negative. All other labs are nonremarkable. Patient is mentating well. Does not appear to be in distress currently. He does have muscle wasting to his left calf. States this is chronic. Has been worked up previously for this. This started prior to his last diagnosis with rhabdomyolysis. He also has clonus to his bilateral lower extremities. This is also been evaluated by neurology with EMGs that were normal. Patient reports that all the symptoms began after he did have a back injury. Again patient is mentating well. States he has been drinking some protein drinks but not more than 1 a day. Has increased his workout recently to help with the atrophy of his left calf. Just recently increased the weight of his weights for this workout. Vital Signs Temperature 99.3 F 10/23/18 13:29 Pulse Rate 112 10/23/18 13:29 Respiratory Rate 18 10/23/18 13:29 Blood Pressure 117/70 10/23/18 13:29 O2 Sat by Pulse Oximetry 94 10/23/18 13:29 Temperature 99.3 F 10/23/18 13:29 Pulse Rate 94 10/23/18 17:45 Respiratory Rate 17 10/23/18 17:45 Blood Pressure 128/63 10/23/18 17:45 O2 Sat by Pulse Oximetry 98 10/23/18 17:45 Oxygen Delivery Oxygen Delivery Room Air Medical Decision Making - Medical Records Medical records reviewed: Yes I reviewed the patient's medical records. - Lab Data Lab results reviewed: Yes I reviewed the patient's lab results. Result diagrams: 10/23/18 14:38 10/23/18 14:38 Lab Results 10/23/18 10/23/18 10/23/18 Range/Units 14:35 14:38 14:38 WBC 5.0 (4.3-11.1) K/mcL RBC 5.50 (4.19-5.50) M/mcL Hgb 17.6 H (12.9-16.9) g/dL Hct 50.8 H (37.5-50.1) % MCV 92.4 (83.0-100.0) fL MCH 32.0 (28.0-33.3) pg MCHC 34.6 (31.6-35.5) g/dL RDW 13.3 (11.5-14.5) % Plt Count 118 L (140-400) K/mcL MPV 10.3 (9.4-12.4) fL Immature Gran % 0.2 (0-4) % Seg Neutrophils % 65.8 % Lymphocytes % 16.3 % Monocytes % 17.1 % Eosinophils % 0.2 % Basophils % 0.4 % Neutrophils # 3.3 (1.6-8.9) K/mcL Lymphocytes # 0.8 (0.6-4.6) K/mcL Monocytes # 0.9 (0.0-1.3) K/mcL Eosinophils # 0.0 (0.0-0.6) K/mcL Basophils # 0.0 (0.0-0.2) K/mcL Sodium 136 (136-145) mEq/L Potassium 4.1 (3.5-5.1) mEq/L Chloride 100 (98-107) mEq/L Carbon Dioxide 26 (23-29) mEq/L BUN 13 (6-20) mg/dL Creatinine 1.18 (0.70-1.30) mg/dL Est GFR ( Amer) > 60 (> 60) Est GFR (Non-Af Amer) > 60 (> 60) BUN/Creatinine Ratio 11 (6-26) Glucose 100 (70-105) mg/dL Calculated Osmolality 282 (280-300) Calcium 8.7 (8.6-10.3) mg/dL Total Bilirubin 0.5 (0.3-1.0) mg/dL AST 38 (13-39) Units/L ALT 41 (7-52) Units/L Alkaline Phosphatase 34 (34-104) Units/L Creatine Kinase 853 H (30-223) Units/L Serum Total Protein 7.0 (6.4-8.9) g/dL Albumin 4.1 (3.5-5.7) g/dL Globulin 2.9 (2.4-3.5) g/dL Albumin/Globulin Ratio 1.4 (1.1-2.2) TSH 1.152 (0.340-5.600) mcIU/mL Urine Color Yellow (Yellow) Urine Clarity Cloudy A (Clear) Urine pH 6.0 (5.0-8.0) pH Units Ur Specific [place] 1.025 (1.010-1.025) Urine Protein 30 H (Neg-Trace) mg/dL Urine Glucose (UA) Normal (Normal) mg/dL Urine Ketones 40 H (Negative) mg/dL Urine Blood Negative (Negative) Urine Nitrite Negative (Negative) Urine Bilirubin Small H (Negative) Urine Urobilinogen Normal (Normal) mg/dL Ur Leukocyte Esterase Negative (Negative) Urine Microscopic RBC 5-15 H (0-3) per hpf Urine Microscopic WBC 3-5 H (0-3) per hpf Ur Squamous Epith Cells Many H (None-Few) per lpf Urine Bacteria None Seen (None-Few) per hpf Hyaline Casts None Seen (None-Few) per lpf Ur Culture Indicated? NO (NO) - Radiology Data Radiology results reviewed: Yes I reviewed the patient's radiology results. Chest X-Ray 10/23/18 14:17 IMPRESSION: Normal chest x-ray D/ / Edgar Tellez MD / Edgar Tellez MD Interpreting Provider: Edgar Tellez MD - EKG Data EKG #1 EKG attestation: Yes I reviewed and interpreted this EKG. EKG results narrative: Sinus tachycardia at a rate of 103. WA interval is 135. QRS duration is 102. QT is 320. QTC is 419. No signs of acute ischemia. Slowed R-wave progression. No significant change from previous EKG dated 05/29/2018. Attestation Statement - Attestation Attestation: Patient was seen with resident physician. I reviewed the history, physical, assessment and plan, and agree with the findings. I also personally evaluated this patient and had [id number] time with this patient. 42-year-old male presents to the emergency department with chief complaint of generalized aches and pains. Patient says he just feels very fatigued. He has had some intermittent fevers. He said he felt similarly last year and was actually diagnosed with rhabdomyolysis. He was told not to run again. He still does some exercise but he says he has not done anything recently. Last year when he had the symptoms she waited approximately 1 week. This time he has only had the symptoms for a couple of days and he came in for evaluation and treatment. He denies nausea vomiting or diarrhea. He does have a slight nonproductive cough. Review of systems as above remainder negative. Physical exam vital signs mild tachycardia otherwise stable. ENT is unremarkable. Heart regular rhythm and rate. Lungs some coarse breath sounds with some mild expiratory wheezing bilaterally. Extremities unremarkable. Neurologically intact. Skin no rashes. Psych normal. ED course. We will treat him for some reactive airways disease. Will also check for pneumonia and other causes of his symptoms. I think he likely has a bronchitis. We will treat appropriately here in the emergency department again as an outpatient once his workup is complete. We will also check for rhabdomyolysis wall is here. Hemodynamically he remained stable throughout his stay. Patient did in fact have rhabdo based on the CK that was elevated. We spoke with the hospitalist service and the patient who agreed to stay. He will be admitted for additional evaluation and treatment. Agree with the resident physician assessment and plan.
[2018-10-23] MEDS ORDERED: Ketorolac 15 MG/ML VIAL IVP STA (14:22)
[2018-10-23] MEDS ORDERED: 0.9 % Sodium Chloride 1,000 ML IVC ONE ×2 (14:22→17:14)
[2018-10-23 14:52] LABS: Basophils % 0.4 %; Eosinophils % 0.2 %; Hematocrit 50.8 % (37.5-50.1); Hemoglobin 17.6 g/dL (12.9-16.9); Immature Granulocytes % 0.2 % (0-4); Lymphocytes # 0.8 K/mcL (0.6-4.6); Lymphocytes % 16.3 %; Mean Corpuscular HGB Conc 34.6 g/dL (31.6-35.5); Mean Corpuscular Volume 92.4 fL (83.0-100.0); Mean Platelet Volume 10.3 fL (9.4-12.4); Monocytes # 0.9 K/mcL (0.0-1.3); Monocytes % 17.1 %; Neutrophils # 3.3 K/mcL (1.6-8.9); Platelet Count 118 K/mcL (140-400); Red Cell Distribution Width 13.3 % (11.5-14.5); Segmented Neutrophils % 65.8 %
[2018-10-23 14:55] LABS: Bilirubin,Urine Small (Negative); Blood,Urine Negative (Negative); Clarity,Urine Cloudy (Clear); Color,Urine Yellow (Yellow); Glucose,Urine (UA) Normal (Normal); Ketones,Urine 40 mg/dL (Negative); Leukocyte Esterase,Urine Negative (Negative); Nitrite,Urine Negative (Negative); Protein,Urine 30 mg/dL (Neg-Trace); Specific Gravity,Urine 1.025 (1.010-1.025); Urobilinogen,Urine Normal (Normal)
[2018-10-23 14:57] LABS: Bacteria,Urine None Seen per hpf (None-Few); Hyaline Casts,Urine None Seen per lpf (None-Few); Squamous Epithelial Cell,Urine Many per lpf (None-Few)
[2018-10-23 15:08] LABS: Alanine Aminotransferase 41 Units/L (7-52); Albumin 4.1 g/dL (3.5-5.7); Albumin/Globulin Ratio 1.4 (1.1-2.2); Alkaline Phosphatase 34 Units/L (34-104); Aspartate Amino Transferase 38 Units/L (13-39); BUN/Creatinine Ratio 11 (6-26); Bilirubin,Total 0.5 mg/dL (0.3-1.0); Blood Urea Nitrogen 13 mg/dL (6-20); Calcium 8.7 mg/dL (8.6-10.3); Carbon Dioxide 26 mEq/L (23-29); Chloride 100 mEq/L (98-107); Globulin 2.9 g/dL (2.4-3.5); Glucose 100 mg/dL (70-105); Osmolality,Calculated 282 (280-300); Potassium 4.1 mEq/L (3.5-5.1); Sodium 136 mEq/L (136-145); eGFR For African Americans > 60 (> 60); eGFR For Non-African Americans > 60 (> 60)
[2018-10-23] MEDS ORDERED: Ondansetron 4 MG/2 ML VIAL IVP STA (15:10)
[2018-10-23 16:40] LABS: Creatine Kinase 853 Units/L (30-223)
[2018-10-23 16:54] LABS: Thyroid Stimulating Hormone 1.152 mcIU/mL (0.340-5.600)
[2018-10-23] MEDS ORDERED: NON-FORMULARY MEDICATION 1 EACH EACH (Sumatriptan Succinate [Imitrex] 100 MG) PO PRN (17:32)
[2018-10-23] MEDS ORDERED: MOM Conc 10 ML UD.LIQ PO PRN (17:33)
[2018-10-23] MEDS ORDERED: Naloxone 0.4 MG/ML INJ IVP PRN (17:33)
[2018-10-23] MEDS ORDERED: Acetaminophen 325 MG TABLET PO PRN (17:33)
[2018-10-23] MEDS ORDERED: Ondansetron 4 MG/2 ML VIAL IVP PRN (17:33)
[2018-10-23] MEDS ORDERED: *HR* OxyCODONE Immed Rel 5 MG TABLET PO PRN (17:33)
[2018-10-23] MEDS ORDERED: SUMAtriptan succinate 50 MG TABLET PO PRN (17:35)
[2018-10-23] MEDS ORDERED: Ketorolac 30 MG/ML VIAL IVP PRN (18:34)
[2018-10-23] MEDS ORDERED: Ipratropium/Albuterol Neb 3 ML IH PRN (18:44)
[2018-10-23] MEDS ORDERED: Mag Hydrox/Al Hydrox/Simeth 30 ML UDC PO PRN (18:45)
--- NOTE | 2018-10-23 18:48 | Internal Med History&Physical ---
Date of Encounter: 10/23/18 Time of Encounter: 17:45 Internal Medicine - H&P: HPI Chief complaint: Aches Admitted From: Emergency Dept Plans for Post Hospital Care: Home History of present illness: Mr. Stephen is a 42 year old male with hx of HTN presented to ED due to achiness. He had prior episode of rhabdomyolysis and was concerned. His CPK was elevated and he has been placed in observation. Mr Stephen stated that he was fine until night. At that time he starting noticing fever and achiness. No one else ill. Symptoms have persisted through yesterday and today he came to be evaluated. He has prior episode of acute rhabdo last January and was hospitalized. At that time evaluation was negative. He noted becoming ill after eating chicken jenniffer in the past and had fettucini jenniffer last week. He also has had issues with atrophy of calf muscles. Nothing at home has helped symptoms. Toradol helped here. Has had associated nausea and belching. No abd pain or diarrhea. Recent trip to [place] few weeks ago. No travel out of country. At this time he is feeling a little better after fluids. His appetite has returned. Past Med Surg Social Fam HX - Past Medical History Source: patient Medical history: hypertension Additional medical history: ruptured disc Psychiatric history: no psych history - Past Surgical History Additional surgical history: ruptured disc - Social History Smoking Status: Never smoker Smokeless Tobacco Status: No Alcohol use: none Drug use: none Occupational status: employed Current living situation: With Family Activity Level: Independent ambulation Recent Out of Country Travel Within the Last 8 Weeks: No Exposure or Possible Exposure to Illness During Travel: Yes (Recent trip to [place].) - Family History Mother Living Status: Still Living Hx Family Cardiac Disorders: Yes (HTN) Hx Family Cancer: (remission of cancer) Father Hx Family Respiratory Disorders: Yes (hardening of lungs) Internal Medicine - H&P: Meds SUMAtriptan Succinate [Imitrex] 100 mg PO AD PRN 02/12/18 [History] Testosterone Cypionate 200 mg IM Q10D 02/12/18 [History] Valsartan/Hydrochlorothiazide [Diovan Hct 80-12.5 mg Tablet] 0.5 tab PO DAILY 10/23/18 [History] Allergy/AdvReac Type Severity Reaction Status Date / Time shrimp Allergy Swelling Verified 10/23/18 17:28 of Lip/Tongue/Throat Sulfa (Sulfonamide AdvReac See Verified 10/23/18 17:28 Antibiotics) Comments All Systems PM: A 10-system review of systems was performed and is negative for pertinent findings except as documented above in the HPI. - Constitutional Constitutional: anorexia, fever(s), malaise, weakness - EENT Eyes: no change in vision, no loss of vision Ears: no decreased hearing Nose, mouth and throat: no dry mouth, no mouth pain - Cardiovascular Cardiovascular ROS IM: lightheadedness, no chest pain, no dyspnea, no dyspnea on exertion, no edema, no palpitations - Respiratory Respiratory: wheezing, no cough, no dyspnea on exertion, no chest congestion - Gastrointestinal Gastrointestinal: belching, bloating, nausea, no abdominal pain, no cramping, no diarrhea - Genitourinary Genitourinary ROS male: no difficulty urinating, no dysuria - Musculoskeletal Musculoskeletal ROS IM: arthralgias, atrophy, myalgias, no joint swelling, no stiffness, no tingling - Integumentary Integumentary IM: no rash - Neurological Neurological ROS: no confusion, no numbness, no tingling, no tremor(s), no vertigo - Endocrine Endocrine IM: no excessive sweating - Hematologic/Lymphatic Hematologic/Lymphatic: no easy bleeding - Allergic/Immunologic Allergic/Immunologic: no throat swelling - Constitutional Vitals: Temp Pulse Resp BP Pulse Ox 99.3 F 94 17 128/63 98 10/23/18 13:29 10/23/18 17:45 10/23/18 17:45 10/23/18 17:45 10/23/18 17:45 General appearance: Present: A&O X 3, pleasant, answers questions appropriately Exam: See below - Head Head exam: Present: atraumatic, normocephalic - Eye Eye exam: Present: EOMI, conjuntiva pink - ENT ENT exam: Present: mucous membranes moist, normal exam - Neck Neck exam general surgery: Present: supple. Absent: nuchal rigidity - Respiratory Respiratory exam: Present: wheezes (L chest). Absent: rales, rhonchi - Cardiovascular Cardiovascular exam: Present: RRR. Absent: +S3, +S4, systolic murmur, tachycardia - GI/Abdominal GI/Abdominal exam: Present: normal bowel sounds, soft. Absent: tenderness - Extremities Exam Extremities exam: Present: warm Additional comments: Atrophy of L calf muscle - Neurological Exam Neurological exam: Present: alert, oriented X3 Additional comments: Clonus present - Skin Skin exam: Present: dry, warm. Absent: rash Internal Med - H&P Results - Labs CBC & Chem 7: 10/23/18 14:38 10/23/18 14:38 Labs: Short CBC 10/23/18 Range/Units 14:38 WBC 5.0 (4.3-11.1) K/mcL Hgb 17.6 H (12.9-16.9) g/dL Hct 50.8 H (37.5-50.1) % Plt Count 118 L (140-400) K/mcL Neutrophils # 3.3 (1.6-8.9) K/mcL BMP 10/23/18 14:38 Sodium 136 Potassium 4.1 Chloride 100 Carbon Dioxide 26 BUN 13 Creatinine 1.18 Glucose 100 Calcium 8.7 Liver Function 10/23/18 Range/Units 14:38 Total Bilirubin 0.5 (0.3-1.0) mg/dL AST 38 (13-39) Units/L ALT 41 (7-52) Units/L Alkaline Phosphatase 34 (34-104) Units/L Albumin 4.1 (3.5-5.7) g/dL Urine 10/23/18 Range/Units 14:35 Urine Color Yellow (Yellow) Urine Clarity Cloudy A (Clear) Urine pH 6.0 (5.0-8.0) pH Units Ur Specific [place] 1.025 (1.010-1.025) Urine Protein 30 H (Neg-Trace) mg/dL Urine Glucose (UA) Normal (Normal) mg/dL - Impressions ITS Impressions Chest X-Ray 10/23/18 14:17 IMPRESSION: Normal chest x-ray D/ / Edgar Tellez MD / Edgar Tellez MD Interpreting Provider: Edgar Tellez MD - Assessment and Plan (1) Rhabdomyolysis Current Visit: Yes Status: Acute Assessment and plan: Pt presented to ED with myalgias and found to have elevated CPK. No recent trauma -? recent illness This is patient's second episode of rhabdo in under a year. Will treat symptomatically at this time with pain control and IV fluids. Recheck CPK in AM. Needs further work up - will start with labs here: ESR, CRP, RIP, lyme and ehrlichia (remembers tick bite), myoglobin serum and urine. TSH normal. Will need further work up outpatient - may have metabolic cause. Qualifiers: Rhabdomyolysis type: non-traumatic Qualified Code(s): M62.82 - Rhabdomyolysis (2) Hypertension Current Visit: No Status: Chronic Assessment and plan: BP has been controlled off medications this past week. Hold meds for now and follow. Qualifiers: Hypertension type: essential hypertension Qualified Code(s): I10 - Essential (primary) hypertension (3) Thrombocytopenia Current Visit: Yes Status: Acute Assessment and plan: Prior platelets are normal. Recheck in AM. Check PT/PTT - Time Spent With Patient Total time spent is greater than 50% in coordination of care (as documented) at patient's floor/unit and/or counseling patient:
[2018-10-23 20:08] LABS: INR 1.3; Prothrombin Time 14.5 Seconds (9.4-12.1)
[2018-10-23 20:11] LABS: Activated Partial Thrombo Time 37.1 Seconds (26.0-36.0)
[2018-10-23] MEDS: 0.9 % Sodium Chloride 1,000 ML IVC SCH (22:04)
[2018-10-24 00:48] LABS: Adenovirus Not Detected (Not Detect); Bordetella Pertussis Not Detected (Not Detect); Chlamydophila pneumoniae Not Detected (Not Detect); Coronavirus 229E Not Detected (Not Detect); Coronavirus HKU1 Not Detected (Not Detect); Coronavirus NL63 Not Detected (Not Detect); Coronavirus OC43 Not Detected (Not Detect); Human Metapneumovirus Not Detected (Not Detect); Human Rhinovirus/Enterovirus Not Detected (Not Detect); Influenza A Subtype 2009 H1 Not Detected (Not Detect); Influenza A Untypeable Not Detected (Not Detect); Influenza B Not Detected (Not Detect); Mycoplasma pneumoniae Not Detected (Not Detect); Parainfluenza Virus 1 Not Detected (Not Detect); Parainfluenza Virus 2 Not Detected (Not Detect); Parainfluenza Virus 3 Not Detected (Not Detect); Parainfluenza Virus 4 Not Detected (Not Detect); Respiratory Syncytial Virus Not Detected (Not Detect)
[2018-10-24 02:40] LABS: Hematocrit 48.9 % (37.5-50.1); Hemoglobin 16.7 g/dL (12.9-16.9); Mean Corpuscular HGB Conc 34.2 g/dL (31.6-35.5); Mean Corpuscular Hemoglobin 32.2 pg (28.0-33.3); Mean Corpuscular Volume 94.4 fL (83.0-100.0); Mean Platelet Volume 10.1 fL (9.4-12.4); Platelet Count 106 K/mcL (140-400); Red Blood Count 5.18 M/mcL (4.19-5.50); Red Cell Distribution Width 13.2 % (11.5-14.5); White Blood Count 4.9 K/mcL (4.3-11.1)
[2018-10-24 02:58] LABS: BUN/Creatinine Ratio 11 (6-26); Blood Urea Nitrogen 11 mg/dL (6-20); Carbon Dioxide 22 mEq/L (23-29); Chloride 102 mEq/L (98-107); Glucose 99 mg/dL (70-105); Magnesium 1.7 mg/dL (1.6-2.6); Osmolality,Calculated 273 (280-300); Potassium 3.8 mEq/L (3.5-5.1); Sodium 132 mEq/L (136-145); eGFR For African Americans > 60 (> 60); eGFR For Non-African Americans > 60 (> 60)
[2018-10-24 07:02] VITALS: BP 118/72
[2018-10-24] MEDS: 0.9 % Sodium Chloride 1,000 ML IVC SCH (10:04)
--- NOTE | 2018-10-24 10:50 | Discharge Summary ---
- NOTES TO OUTPATIENT PROVIDER Notes to Outpatient Provider: Pt presented with fever, myalgias and CPK elevation (approx 800). Work up negative thus far. Will need further work up of recurrent rhabdo. Orders not resulted at time of discharge: Pending orders 10/23/18 14:18 ECG 12 lead ECG [ECG] Stat 10/23/18 19:17 Ehrlichia chaffeensis IgG/IgM Routine Myoglobin Routine 10/23/18 23:20 Myoglobin,Urine Random or 24hr Routine Date of Encounter: 10/24/18 Time of Encounter: 10:48 - Discharge Diagnosis (1) Rhabdomyolysis Priority: Primary Status: Acute Qualifiers: Rhabdomyolysis type: non-traumatic Qualified Code(s): M62.82 - Rhabdomyolysis (2) Hypertension Priority: Secondary Status: Chronic Qualifiers: Hypertension type: essential hypertension Qualified Code(s): I10 - Essenti al (primary) hypertension (3) Thrombocytopenia Priority: Secondary Status: Acute Hospital course: Mr. Stephen is a 42 year old male with hx of HTN and prior acute rhabdo in 01/2018 presented to ED with myalgias and elevated CPK. He was placed in observation. Mr Stephen was placed in observation. Multiple tests ordered to evaluated rhabdo (especially since this is a recurrent episode). Platelets noted to be low as well. Viral studies neg. Noted to have serous OM and post nasal drainage. Continued to have low grade temp and myalgia. Procalcitonin negative. Pt to be discharged on doxycycline (? tick associated with thrombocytopenia) for a week. Lots of fluids. Follow up with PCP - most likely needs further work up. Discharge discussed with: patient, family, nurse - Time Spent with Patient Total time spent providing and/or coordinating discharge services: 35min - Discharge Medications Prescriptions: New Doxycycline Hyclate 100 mg PO BID #14 tablet. Continued Testosterone Cypionate 200 mg IM Q10D SUMAtriptan Succinate [Imitrex] 100 mg PO AD PRN PRN Reason: Migraine Headache Valsartan/Hydrochlorothiazide [Diovan Hct 80-12.5 mg Tablet] 0.5 tab PO DAILY Home Medications: SUMAtriptan Succinate [Imitrex] 100 mg PO AD PRN 02/12/18 [History] Testosterone Cypionate 200 mg IM Q10D 02/12/18 [History] Valsartan/Hydrochlorothiazide [Diovan Hct 80-12.5 mg Tablet] 0.5 tab PO DAILY 10/23/18 [History] Doxycycline Hyclate 100 mg PO BID #14 tablet. 10/24/18 [Rx] Allergies/Adverse Reactions: Allergy/AdvReac Type Severity Reaction Status Date / Time shrimp Allergy Swelling Verified 10/23/18 17:28 of Lip/Tongue/Throat Sulfa (Sulfonamide AdvReac See Verified 10/23/18 17:28 Antibiotics) Comments Date of admission: 10/23/18 18:06 Primary care physician: Beatrice Ni CNP Discharging clinician: Rafi Low Anticipated date of discharge: 10/24/18 - Constitutional Vitals: Temp Pulse Resp BP Pulse Ox 100.6 F H 108 16 118/72 91 10/24/18 07:00 10/24/18 07:00 10/24/18 07:00 10/24/18 07:00 10/24/18 07:00 General appearance: Present: A&O X 3, pleasant, answers questions appropriately Exam: See below - Head Head exam: Present: normocephalic - Eye Eye exam: Present: EOMI, conjuntiva pink - ENT ENT exam: Present: normal oropharynx (Post nasal drainage). Absent: TM's normal bilaterally (Serous OM bilaterally. ) - Neck Neck exam general surgery: Present: normal inspection, supple. Absent: nuchal rigidity - Respiratory Respiratory exam: Present: CTAB. Absent: rhonchi, wheezes - Cardiovascular Cardiovascular exam: Present: RRR. Absent: +S3, +S4, systolic murmur, tac hycardia - GI/Abdominal GI/Abdominal exam: Present: soft - Extremities Exam Extremities exam: Present: warm. Absent: tenderness - Neurological Exam Neurological exam: Present: alert, oriented X3 - Skin Skin exam: Present: dry, warm. Absent: rash - Patient Status Disposition: Home, Self-Care Condition: Good Overall status at discharge: patient is progressing back to baseline - Discharge Instructions Instructions: Doxycycline (By mouth), Sinusitis (GEN) Follow Up With: Beatrice Ni CNP [Primary Care Provider] - (follow up has been requested) - Diet and Activity Activity: resume usual activities as tolerated Diet: advance to your usual diet
--- NOTE | 2018-10-26 12:03 | Electrocardiograph Report ---
[facility] Test Date: 2018-10-23 Pat Name: Spencer Stephen Department: EXAM2 Room: 3B13 Gender: M [employer]: : 1975 Requested By: Iris Trotter Order Number: [id number] Reading MD: Oracio Crawford Measurements Intervals [place] Rate: 103 P: 66 MS: 135 QRS: 24 QRSD: 102 T: 25 QT: 320 QTc: 419 Interpretive Statements Sinus tachycardia Electronically Signed On 10-26-2018 12:01:44 EDT by Oracio Crawford
== END 2018-10-24 11:15 | disposition home or self-care (01) ==
LOC: EMEROOARM 13:27 → 3BNU 13:27 → SUATTDRO 18:06 → 3BNU 19:43
PROVIDERS: ADMIT Internal Medicine Nephrology; ATTEND Internal Medicine